=== PATIENT | male | born 1990 ===

== ENCOUNTER 2017-10-03 12:35 | Emergency (ER) | payer BC ==
[2017-10-03 12:41] VITALS: RESP 18; O2SAT 99; BMI 26.0
[2017-10-03] MEDS ORDERED: TDAP Vaccine 0.5 mL Syr IM ONE (12:54)
--- NOTE | 2017-10-03 12:58 | ED PDOC ---
Arrival/HPI - General Chief Complaint: Trauma Time Seen by Provider: 10/03/17 12:46 Historian: Patient - History of Present Illness Narrative History of Present Illness (Text): 10/03/17 12:55 26 year old male, with no significant past medical history, presents to the emergency department for medical evaluation status post head trauma 3 days ago. 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 Patient denies loss of consciousness, but informs sustaining an abrasion to the right parietal region. Patient informs he has been feeling "tired" and experiencing headaches since the injury. Patient states that he has been taking Advil for the headaches,with improvement to symptoms for a short time. Patient denies any fever, chills, nausea, vomiting, diarrhea, abdominal pain, change in vision, numbness/tingling, slurred speech, chest pain, shortness of breath or any other complaints. Patient denies tetanus vaccine in the past. PMD: Dr. Powers Time/Duration: < week Symptom Onset: Gradual (gradual headaches) Symptom Course: Unchanged Activities at Onset: Light Context: Work (Construction site) Past Medical History - Provider Review Nursing Documentation Reviewed: Yes - Infectious Disease Hx of Infectious Diseases: None - Psychiatric Hx Substance Use: No - Surgical History Hx Orthopedic Surgery: Yes (L knee sx) - Anesthesia Hx Anesthesia: Yes Hx Anesthesia Reactions: No Hx Malignant Hyperthermia: No Family/Social History - Physician Review Nursing Documentation Reviewed: Yes Family/Social History: No Known Family HX Smoking Status: Never Smoked Hx Alcohol Use: No Hx Substance Use: No Allergies/Home Meds Allergies/Adverse Reactions: Allergies No Known Allergies Allergy (Verified 10/03/17 12:39) Home Medications: Home Meds Medication Instructions Recorded Confirmed No Known Home Med 10/03/17 10/03/17 Review of Systems - Physician Review All systems were reviewed & negative as marked: Yes - Review of Systems Constitutional: Fatigue Eyes: Normal. absent: Vision Changes ENT: Normal Respiratory: Normal. absent: SOB Cardiovascular: Normal. absent: Chest Pain Gastrointestinal: Normal. absent: Abdominal Pain, Diarrhea, Nausea, Vomiting Genitourinary Male: Normal Musculoskeletal: Normal Skin: Normal Neurological: Headache. absent: Dizziness, Focal Weakness, Speech Changes Endocrine: Normal Hemo/Lymphatic: Normal Psychiatric: Normal Physical Exam Vital Signs Reviewed: Yes Vital Signs Temp Pulse Resp BP Pulse Ox 10/03/17 13:51 97.5 F L 70 18 126/80 99 10/03/17 13:47 97.5 F L 70 18 126/80 99 10/03/17 12:40 97.4 F L 65 18 135/88 99 Temperature: Afebrile Blood Pressure: Normal Pulse: Regular Respiratory Rate: Normal Appearance: Positive for: Well-Appearing, Non-Toxic, Comfortable Pain Distress: None Mental Status: Positive for: Alert and Oriented X 3 - Systems Exam Head: Present: Atraumatic, Normocephalic, Abrasion (2mm abrasion on right parietal) Pupils: Present: PERRL Extroacular Muscles: Present: EOMI Conjunctiva: Present: Normal Neck: Present: Normal Range of Motion. No: MIDLINE TENDERNESS, Paraspinal Tenderness Respiratory/Chest: Present: Clear to Auscultation, Good Air Exchange. No: Respiratory Distress, Accessory Muscle Use Cardiovascular: Present: Regular Rate and Rhythm, Normal S1, S2. No: Murmurs Abdomen: No: Tenderness, Distention, Peritoneal Signs Back: Present: Normal Inspection Upper Extremity: Present: Normal Inspection. No: Cyanosis, Edema Lower Extremity: Present: Normal Inspection. No: Edema Neurological: Present: GCS=15, CN II-XII Intact, Speech Normal Skin: Present: Warm, Dry, Normal Color. No: Rashes Psychiatric: Present: Alert, Oriented x 3, Normal Insight, Normal Concentration Medical Decision Making ED Course and Treatment: 10/03/17 12:59 Impression: 26 year old male presents to the emergency department with a head injury/abrasion. Plan: -- CT of Head -- TDAP vaccine -- Reassess and disposition Prior Visits: Notes and results from previous visits were reviewed. Progress Notes: 10/03/17 13:51 CT of head reviewed by radiologist, shows: No acute intracranial abnormalities. No significant findings to account for the clinical presentation. - RAD Interpretation Radiology Orders: 10/03/17 12:53 HEAD W/O CONTRAST [CT] Stat Fitness Worker: Radiologist - Medication Orders Current Medication Orders: Discontinued Medications Tetanus/Reduced Diphtheria/Acell Pertussis (Boostrix Vaccine Inj) 0.5 ml IM .ONCE ONE Stop: 10/03/17 12:55 Last Admin: 10/03/17 12:56 Dose: 0.5 ml - Scribe Statement The provider has reviewed the documentation as recorded by the Scribe Darren Roman, junior with [facility] All medical record entries made by the Scribe were at my direction and personally dictated by me. I have reviewed the chart and agree that the record accurately reflects my personal performance of the history, physical exam, medical decision making, and the department course for this patient. I have also personally directed, reviewed, and agree with the discharge instructions and disposition. Disposition/Present on Arrival - Present on Arrival Any Indicators Present on Arrival: No History of DVT/PE: No History of Uncontrolled Diabetes: No Urinary Catheter: No History of Decub. Ulcer: No History Surgical Site Infection Following: None - Disposition Have Diagnosis and Disposition been Completed?: Yes Diagnosis: Head contusion Disposition: HOME/ ROUTINE Disposition Time: 13:30 Condition: GOOD Discharge Instructions (ExitCare): Minor Head Injury (DC) Additional Instructions: KAYLAH PATTON, thank you for letting us take care of you today. Your provider was Ervin Carlisle DO and you were treated for POSSIBLE HEAD INJURY. The emergency medical care you received today was directed at your acute symptoms. If you were prescribed any medication, please fill it and take as directed. It may take several days for your symptoms to resolve. Return to the Emergency Department if your symptoms worsen, do not improve, or if you have any other problems. Please contact your doctor or call one of the physicians/clinics you have been referred to that are listed on the Patient Visit Information form that is included in your discharge packet. Bring any paperwork you were given at discharge with you along with any medications you are taking to your follow up visit. Our treatment cannot replace ongoing medical care by a primary care provider outside of the emergency department. Thank you for allowing the [facility] team to be part of your care today. Follow up with your primary care doctor in 2-3 days for re-evaluation and further management. Referrals: Shaik Powers MD [Primary Care Provider] - Follow up with primary Forms: [employer] (Spanish)
--- NOTE | 2017-10-03 13:31 | CT ---
Date of service: 10/03/2017 PROCEDURE: CT HEAD WITHOUT CONTRAST. HISTORY: r/o fx and ICH COMPARISON: None available. TECHNIQUE: Axial computed tomography images were obtained through the head/brain without intravenous contrast. Radiation dose: Total exam DLP = 940.17 mGy-cm. This CT exam was performed using one or more of the following dose reduction techniques: Automated exposure control, adjustment of the mA and/or kV according to patient size, and/or use of iterative reconstruction technique. FINDINGS: HEMORRHAGE: No intracranial hemorrhage. BRAIN: No mass effect or edema. No atrophy or chronic microvascular ischemic changes. VENTRICLES: Unremarkable. No hydrocephalus. CALVARIUM: Unremarkable. PARANASAL SINUSES: Unremarkable as visualized. No significant inflammatory changes. MASTOID AIR CELLS: Unremarkable as visualized. No inflammatory changes. OTHER FINDINGS: None. IMPRESSION: No acute intracranial abnormalities. No significant findings to account for the clinical presentation.
[2017-10-03 13:49] VITALS: BP 126/80; PULSE 70; TEMP 97.5
== END 2017-10-03 13:54 | disposition home or self-care (01) ==
LOC: ED 12:35 → MERGE 12:35 → ED 13:54
DX: S00.93XA Contusion of unspecified part of head, initial encounter (principal); W20.8XXA Other cause of strike by thrown, projected or falling object, initial encounter; Y92.69 Other specified industrial and construction area as the place of occurrence of the external cause; Y99.0 Civilian activity done for income or pay; Z23 Encounter for immunization